=== PATIENT | female | born 1940 | race Caucasian/White ===

== ENCOUNTER 2020-07-06 23:42 | Inpatient (IN) ==
[2020-07-07] MEDS ORDERED: Ondansetron 4 MG/2 ML VIAL IVP PRN (02:36)
[2020-07-07] MEDS ORDERED: Naloxone 0.4 MG/ML INJ IVP PRN (02:36)
[2020-07-07] MEDS ORDERED: *HR* Dextrose 50 % in Water (Vial) 50 ML VIAL IVP PRN (03:02)
[2020-07-07] MEDS ORDERED: Dextrose Gel 15 GM/37.5 ML TUBE PO PRN ×2 (03:02)
[2020-07-07] MEDS ORDERED: D5% in Water 1,000 ML IVC PRN (03:02)
[2020-07-07] MEDS: 0.9 % Sodium Chloride 1,000 ML IVC SCH ×2 (03:24→12:50)
[2020-07-07] MEDS: Ipratropium/Albuterol Neb 3 ML IH SCH ×4 (03:43→21:58)
[2020-07-07 04:12] LABS: Basophils % 0.3 %; Eosinophils # 0.2 K/mcL (0.0-0.6); Eosinophils % 2.4 %; Hematocrit 32.4 % (35.3-44.9); Hemoglobin 9.7 g/dL (11.5-15.4); Immature Granulocytes % 0.3 % (0-4); Lymphocytes # 2.6 K/mcL (0.6-4.6); Lymphocytes % 25.6 %; Mean Corpuscular HGB Conc 29.9 g/dL (31.6-35.5); Mean Corpuscular Volume 93.4 fL (83.0-100.0); Mean Platelet Volume 9.7 fL (9.4-12.4); Monocytes % 10.4 %; Neutrophils # 6.1 K/mcL (1.6-8.9); Platelet Count 271 K/mcL (140-400); Red Blood Count 3.47 M/mcL (3.82-4.97); Red Cell Distribution Width 16.9 % (11.5-14.5)
[2020-07-07 04:18] LABS: Estimated Average Glucose 117 mg/dl; Hemoglobin A1C 5.7 %
[2020-07-07 04:19] LABS: INR 1.3; Prothrombin Time 14.7 Seconds (9.4-12.1)
[2020-07-07 04:21] LABS: Activated Partial Thrombo Time 31.5 Seconds (26.0-36.0)
[2020-07-07 04:58] LABS: Alanine Aminotransferase 4 Units/L (7-52); Albumin 2.4 g/dL (3.5-5.7); Albumin/Globulin Ratio 0.9 (1.1-2.2); Alkaline Phosphatase 65 Units/L (34-104); Aspartate Amino Transferase 13 Units/L (13-39); BUN/Creatinine Ratio 32 (6-26); Bilirubin,Total 0.3 mg/dL (0.3-1.0); Blood Urea Nitrogen 18 mg/dL (8-23); Calcium 7.7 mg/dL (8.6-10.3); Carbon Dioxide 28 mEq/L (23-29); Chloride 105 mEq/L (98-107); Globulin 2.7 g/dL (2.4-3.5); Glucose 122 mg/dL (70-105); Osmolality,Calculated 295 (280-300); Phosphorous 2.8 mg/dL (2.7-4.5); Potassium 4.5 mEq/L (3.5-5.1); Sodium 141 mEq/L (136-145); Total Protein 5.1 g/dL (6.4-8.9); Troponin I < 0.03 ng/mL (< 0.04); eGFR For African Americans > 60 (> 60); eGFR For Non-African Americans > 60 (> 60)
[2020-07-07] MEDS: Pantoprazole 40 MG VIAL IVP SCH (05:36)
[2020-07-07] MEDS: Insulin LISPRO 300 UNITS/3 ML VIAL SUBQ SCH ×4 (06:15→20:26)
[2020-07-07] MEDS: Piperacillin/Tazobactam 3.375 GM in 0.9 % Sodium Chloride Mini Bag 100 ML IVPB SCH ×3 (07:52→23:46)
[2020-07-07 08:55] LABS: Bilirubin,Urine Negative (Negative); Blood,Urine Large (Negative); Clarity,Urine Clear (Clear); Glucose,Urine (UA) Normal (Normal); Ketones,Urine Negative (Negative); Leukocyte Esterase,Urine Negative (Negative); Nitrite,Urine Negative (Negative); Protein,Urine 50 mg/dL (Neg-Trace); Specific Gravity,Urine 1.021 (1.010-1.025); Urobilinogen,Urine Normal (Normal)
[2020-07-07 08:56] LABS: Color,Urine Red (Yellow)
[2020-07-07] MEDS ORDERED: Vancomycin 1,250 MG/262.5 ML IV.SOLN IVPB SCH (15:00)
[2020-07-07] MEDS: *HR* HYDROcodone/Acet 5/325 mg TABLET PO PRN (15:26)
[2020-07-07] MEDS: Lactulose Oral Soln 20 GM/30 ML UDC PO SCH (20:33)
[2020-07-07] MEDS: Divalproex Sodium 125 MG Sprinkle Capsule (DR) PO SCH (20:34)
[2020-07-07] MEDS: risperiDONE 1 MG TABLET PO SCH (20:34)
[2020-07-08 02:06] LABS: Basophils % 0.3 %; Eosinophils # 0.3 K/mcL (0.0-0.6); Hematocrit 27.9 % (35.3-44.9); Hemoglobin 8.2 g/dL (11.5-15.4); Immature Granulocytes % 0.1 % (0-4); Lymphocytes # 2.5 K/mcL (0.6-4.6); Lymphocytes % 34.1 %; Mean Corpuscular HGB Conc 29.4 g/dL (31.6-35.5); Mean Corpuscular Hemoglobin 28.1 pg (28.0-33.3); Mean Corpuscular Volume 95.5 fL (83.0-100.0); Mean Platelet Volume 9.6 fL (9.4-12.4); Monocytes # 0.7 K/mcL (0.0-1.3); Monocytes % 9.8 %; Neutrophils # 3.8 K/mcL (1.6-8.9); Platelet Count 230 K/mcL (140-400); Red Blood Count 2.92 M/mcL (3.82-4.97); Red Cell Distribution Width 16.6 % (11.5-14.5); Segmented Neutrophils % 51.7 %; White Blood Count 7.3 K/mcL (4.3-11.1)
[2020-07-08 02:27] LABS: BUN/Creatinine Ratio 22 (6-26); Blood Urea Nitrogen 13 mg/dL (8-23); Calcium 7.5 mg/dL (8.6-10.3); Carbon Dioxide 33 mEq/L (23-29); Chloride 103 mEq/L (98-107); Glucose 123 mg/dL (70-105); Magnesium 1.6 mg/dL (1.6-2.6); Osmolality,Calculated 289 (280-300); Phosphorous 3.2 mg/dL (2.7-4.5); Potassium 4.6 mEq/L (3.5-5.1); Sodium 139 mEq/L (136-145); eGFR For African Americans > 60 (> 60); eGFR For Non-African Americans > 60 (> 60)
[2020-07-08] MEDS: Ipratropium/Albuterol Neb 3 ML IH SCH ×4 (03:51→21:33)
[2020-07-08] MEDS: Pantoprazole 40 MG VIAL IVP SCH (05:31)
[2020-07-08] MEDS: Insulin LISPRO 300 UNITS/3 ML VIAL SUBQ SCH ×4 (08:08→21:22)
[2020-07-08] MEDS: Piperacillin/Tazobactam 3.375 GM in 0.9 % Sodium Chloride Mini Bag 100 ML IVPB SCH ×3 (09:12→23:43)
[2020-07-08] MEDS: Metoprolol XL (24 HR) Succ 25 MG TAB.ER.24H PO SCH ×2 (09:12→15:31)
[2020-07-08] MEDS: Divalproex Sodium 125 MG Sprinkle Capsule (DR) PO SCH ×3 (09:13→21:25)
[2020-07-08] MEDS: Sennosides/Docusate Sodium TABLET PO SCH ×2 (09:56→21:25)
[2020-07-08] MEDS ORDERED: 0.9 % Sodium Chloride 500 ML IVC ONE (12:21)
[2020-07-08] MEDS ORDERED: 0.9 % Sodium Chloride 1,000 ML IVC SCH (12:30)
[2020-07-08] MEDS: Lactulose Oral Soln 20 GM/30 ML UDC PO SCH (19:09)
[2020-07-08] MEDS: risperiDONE 1 MG TABLET PO SCH (21:25)
[2020-07-08] MEDS: *HR* HYDROcodone/Acet 5/325 mg TABLET PO PRN (22:10)
[2020-07-09] MEDS: Ipratropium/Albuterol Neb 3 ML IH SCH ×2 (03:44→10:13)
[2020-07-09 05:33] LABS: Basophils % 0.2 %; Eosinophils # 0.3 K/mcL (0.0-0.6); Hematocrit 27.6 % (35.3-44.9); Hemoglobin 8.1 g/dL (11.5-15.4); Immature Granulocytes % 0.1 % (0-4); Lymphocytes % 35.8 %; Mean Corpuscular HGB Conc 29.3 g/dL (31.6-35.5); Mean Corpuscular Hemoglobin 28.1 pg (28.0-33.3); Mean Corpuscular Volume 95.8 fL (83.0-100.0); Mean Platelet Volume 10.1 fL (9.4-12.4); Monocytes # 0.8 K/mcL (0.0-1.3); Monocytes % 9.8 %; Neutrophils # 4.2 K/mcL (1.6-8.9); Platelet Count 239 K/mcL (140-400); Red Blood Count 2.88 M/mcL (3.82-4.97); Red Cell Distribution Width 16.4 % (11.5-14.5); Segmented Neutrophils % 50.1 %; White Blood Count 8.3 K/mcL (4.3-11.1)
[2020-07-09] MEDS: Pantoprazole 40 MG VIAL IVP SCH (05:41)
[2020-07-09 05:51] LABS: BUN/Creatinine Ratio 24 (6-26); Blood Urea Nitrogen 14 mg/dL (8-23); Calcium 7.8 mg/dL (8.6-10.3); Carbon Dioxide 33 mEq/L (23-29); Chloride 103 mEq/L (98-107); Glucose 102 mg/dL (70-105); Magnesium 1.5 mg/dL (1.6-2.6); Osmolality,Calculated 287 (280-300); Phosphorous 2.9 mg/dL (2.7-4.5); Potassium 4.1 mEq/L (3.5-5.1); Sodium 138 mEq/L (136-145); eGFR For African Americans > 60 (> 60); eGFR For Non-African Americans > 60 (> 60)
[2020-07-09] MEDS ORDERED: Magnesium Sulfate 1 GM/102 ML PIGGYBACK IVPB ONE (08:01)
[2020-07-09] MEDS: Insulin LISPRO 300 UNITS/3 ML VIAL SUBQ SCH ×3 (09:26→16:15)
[2020-07-09] MEDS: Sennosides/Docusate Sodium TABLET PO SCH (09:29)
[2020-07-09] MEDS: Divalproex Sodium 125 MG Sprinkle Capsule (DR) PO SCH ×2 (09:30→15:53)
[2020-07-09] MEDS: Metoprolol XL (24 HR) Succ 25 MG TAB.ER.24H PO SCH (09:34)
[2020-07-09] MEDS: Piperacillin/Tazobactam 3.375 GM in 0.9 % Sodium Chloride Mini Bag 100 ML IVPB SCH (10:29)
[2020-07-09 15:16] VITALS: BP 113/66
[2020-07-09] MEDS ORDERED: Ipratropium/Albuterol Neb 3 ML IH PRN (15:46)
== END 2020-07-09 17:34 | disposition home health service (06) | DRG 698 ==
LOC: 3ANU → SUATTDRO 07-07 01:29
PROVIDERS: ADMIT Family Medicine; ATTEND Internal Medicine